=== PATIENT | female | born 1945 | race Two or more races ===

== ENCOUNTER 2020-06-19 08:31 | Outpatient (CLI) | payer OTHER | END 2020-06-19 08:37 | disposition home or self-care (01) | LOC: NUCLEAR 08:31 | PROVIDERS: ATTEND Internal Medicine Hematology & Oncology | DX: C54.1 Malignant neoplasm of endometrium (principal) | CPT/HCPCS: 78816; A9552 ==

== ENCOUNTER 2020-12-26 07:53 | Outpatient (CLI) | payer OTHER | END 2020-12-26 07:54 | disposition home or self-care (01) | LOC: NUCLEAR 07:53 | PROVIDERS: ATTEND Internal Medicine Hematology & Oncology | DX: C54.1 Malignant neoplasm of endometrium (principal); Z92.21 Personal history of antineoplastic chemotherapy | CPT/HCPCS: 78815; A9552 ==

== ENCOUNTER 2024-10-01 13:27 | Inpatient (IN) | payer OTHER ==
[~2024-10-01] VITALS: Ht 152.4 cm; Wt 42.6 kg
[2024-10-01] MEDS ORDERED: TOPROL XL50 M1 PO (14:20)
[2024-10-01] MEDS ORDERED: JANUVIA100 MG PO (14:20)
[2024-10-01] MEDS ORDERED: TAMS0.4C PO (14:21)
[2024-10-01] MEDS ORDERED: COZAAR100 MG PO (14:21)
[2024-10-01] MEDS ORDERED: CRESTOR40 MG (14:21)
--- NOTE | 2024-10-01 14:22 | NUR ---
SE RECIBE PTE ALERTA Y ORIENTADA X3 CUAL REFIERE VENIR POR REFERIDO DE DR.MORALES DURAN POR DOLOR PELVICO LADO DERECHO. SE CHASIDY S/V Y SE UBICA. PTE HX OF CA PELVICO.
[2024-10-01] MEDS ORDERED: FAMOTIDINE/PF 20 MG/2 ML VIAL IV STA (16:09)
[2024-10-01] MEDS ORDERED: MORPHINE SULFATE 4 MG/ML CARTRIDGE IV STA (16:09)
[2024-10-01 16:52] LABS: BASO % 0.2 % (0.1-1.2); EOS # 0.02 (0.04-0.54); EOS % 0.1 % (0.7-7.0); LYMPH # 0.72 (1.18-3.74); LYMPH % 4.8 % (19.3-53.1); MEAN PLATELET VOLUME 10.70 fl (9.4-12.4); MONO # 0.97 (0.24-0.82); MONO % 6.5 % (4.7-12.5); NEUT # 12.94 (1.56-6.13); NEUT % 86.3 % (34.0-71.1); RED CELL DISTRIBUTION WIDTH 18.1 % (11.6-14.4)
[2024-10-01] MEDS ORDERED: SODIUM CL 0.9% 25 ML IV.SOLN. IV STA (16:53)
--- NOTE | 2024-10-01 17:18 | NUR ---
SE ORIENTA A PACIENTE SOBRE TX MEDICO Y ARCELIA REFIERE ENTENDER Y ACEPTAR EL MISMO. SE PROCEDE A KARI MUESTRAS DE LAB. BAJO MEDIDAS ASEPTICAS. SE PROCEDE A CANALIZAR PACIENTE BAJO MEDIDAS ASEPTICAS. SE PROCEDE A ADMINISTARR MEDICAMENTO KITA ORDEN MEDICA BAJO MEDIDAS ASEPTICAS.
[2024-10-01 17:21] LABS: ALT/SGPT 42.0 U/L (12-78); AST/SGOT 43.0 U/L (15-37); BILIRUBIN TOTAL 0.71 mg/dL (0.3-1.2); BUN CREA RATIO 18.0 (7.0-25.0); CREATININE SERUM 1.1 mg/dL (0.55-1.02); GFR 47.67; GLOBULINA 4.9 G/DL (2.4-3.5); GLUCOSE FASTING 162.0 mg/dL (65-100); OSMOLALITY SERUM 282.0 MOSM/KG (275-295)
[2024-10-01 18:22] LABS: URINE APPEARANCE Clear; URINE BILIRRUBIN Negative (NEGATIVE); URINE BLOOD Moderate; URINE COLOR Dark Yellow; URINE GLUCOSE Negative (NEGATIVE); URINE KETONE Trace (NEGATIVE); URINE LEUKOCYTE Moderate; URINE NITRATE Positive; URINE UROBILINOGEN 0.2 E.U./dl
[2024-10-01 18:26] LABS: URINE BACTERIA 6831.6 uL (0.0-1933); URINE EPITHELIAL CELLS 1.5 uL (0.0-38.8); URINE RBC 18.9 uL (0.0-20.8); URINE WBC 621.2 uL (0.0-23.2)
--- NOTE | 2024-10-01 18:30 | NUR ---
SE CHASIDY SIGNOS VITALES PREVIO A ADMINISTRACION DE MORFINA BP 120/52 Y SE ORIENTA SOBRE MEDICACION Y SEGUIMIENTO DE CONDICION. CLIENTE ALERTA Y ORIENTADO AL MOMENTO DE LA INTERVENCION.
[2024-10-01 18:31] LABS: URINE CAST 0.87 uL (0.0-1.40); URINE PROTEIN 100 (NEGATIVE)
[2024-10-01] MEDS ORDERED: DEXTROSE 50 % IN WATER 0.5 G/ML VIAL IV PRN (20:00)
[2024-10-01] MEDS ORDERED: INSULIN LISPRO 1,000 UNIT/10 ML UNITS SUBCUTANEO PRN (20:00)
[2024-10-01] MEDS ORDERED: TAMSULOSIN HCL 0.4 MG CAP PO SCH (20:04)
[2024-10-01] MEDS ORDERED: LOSARTAN POTASSIUM 100 MG TABLET PO SCH (20:04)
[2024-10-01] MEDS ORDERED: METOPROLOL TARTRATE 50 MG TABLET PO SCH (20:04)
[2024-10-01] MEDS ORDERED: ENOXAPARIN SODIUM 40 MG/0.4 ML SYRINGE SUBCUTANEO SCH (20:05)
[2024-10-01] MEDS ORDERED: ONDANSETRON HCL 4 MG in 0.9 % SODIUM CHLORIDE 50 ML IV PRN (20:15)
[2024-10-01] MEDS ORDERED: 0.9 % SODIUM CHLORIDE 1,000 ML IV SCH (20:15)
[2024-10-01] MEDS ORDERED: ACETAMINOPHEN 325 MG TABLET PO PRN (20:15)
[2024-10-01] MEDS ORDERED: MORPHINE SULFATE 4 MG/ML CARTRIDGE IV PRN (20:15)
[2024-10-01] MEDS ORDERED: PIPERACILLIN/TAZOBACTAM SODIUM 4.5 GM VIAL IV SCH (21:00)
[2024-10-02 01:43] LABS: INR 1.21
[2024-10-02 05:55] VITALS: BP 107/55; O2SAT 96
[2024-10-02 07:05] LABS: BASO % 0.1 % (0.1-1.2); EOS # 0.01 (0.04-0.54); EOS % 0.1 % (0.7-7.0); LYMPH # 0.77 (1.18-3.74); LYMPH % 5.0 % (19.3-53.1); MEAN PLATELET VOLUME 10.80 fl (9.4-12.4); MONO # 0.91 (0.24-0.82); MONO % 5.9 % (4.7-12.5); NEUT # 13.33 (1.56-6.13); NEUT % 86.8 % (34.0-71.1); RED CELL DISTRIBUTION WIDTH 18.2 % (11.6-14.4)
[2024-10-02 09:50] VITALS: BP 113/61; O2SAT 95
[2024-10-02] MEDS ORDERED: OxyCODONE HCL 5 MG TABLET (ROXICODONE) PO PRN (14:15)
[2024-10-02 16:23] VITALS: BP 166/81
[2024-10-02] MEDS ORDERED: PHENAZOPYRIDINE HCL 100 MG TABLET PO NR (20:00)
[2024-10-02] MEDS ORDERED: TRAMADOL HCL 50 MG TABLET PO SCH (21:00)
[2024-10-02] MEDS ORDERED: FAMOTIDINE/PF 20 MG in 0.9 % SODIUM CHLORIDE 8 ML IV PUSH SCH (21:00)
[2024-10-03 02:17] VITALS: BP 127/67; O2SAT 97
[2024-10-03 06:27] LABS: BASO % 0.2 % (0.1-1.2); EOS # 0.07 (0.04-0.54); EOS % 0.5 % (0.7-7.0); LYMPH # 0.81 (1.18-3.74); LYMPH % 5.2 % (19.3-53.1); MEAN PLATELET VOLUME 11.10 fl (9.4-12.4); MONO # 0.87 (0.24-0.82); MONO % 5.6 % (4.7-12.5); NEUT # 13.32 (1.56-6.13); NEUT % 86.4 % (34.0-71.1); RED CELL DISTRIBUTION WIDTH 17.4 % (11.6-14.4)
[2024-10-03 06:53] LABS: BUN CREA RATIO 19.0 (7.0-25.0); CREATININE SERUM 0.78 mg/dL (0.55-1.02); GFR 70.88; GLUCOSE FASTING 147.0 mg/dL (65-100); OSMOLALITY SERUM 281.0 MOSM/KG (275-295)
[2024-10-03] MEDS ORDERED: PHENAZOPYRIDINE HCL 100 MG TABLET PO SCH (09:00)
[2024-10-03 09:04] VITALS: BP 135/67; O2SAT 94
[2024-10-03 17:45] VITALS: BP 143/70; O2SAT 96
[2024-10-04 01:00] VITALS: BP 110/68; O2SAT 91
[2024-10-04 08:47] VITALS: BP 160/76; O2SAT 94
[2024-10-04] MEDS ORDERED: MINERAL OIL 30 ML BLIST.PACK PO NR (14:00)
[2024-10-04] MEDS ORDERED: MAGNESIUM HYDROXIDE 30 ML BLIST.PACK PO NR (14:00)
[2024-10-04] MEDS ORDERED: LACTULOSE 20 G/30 ML BLIST.PACK PO NR (14:00)
[2024-10-04] MEDS ORDERED: CEFAZOLIN SODIUM 1,000 MG VIAL IV SCH (17:00)
[2024-10-04 17:50] VITALS: BP 156/77; O2SAT 100
[2024-10-05 02:03] VITALS: BP 161/70; O2SAT 90
[2024-10-05 09:02] LABS: BASO % 0.3 % (0.1-1.2); EOS # 0.01 (0.04-0.54); EOS % 0.1 % (0.7-7.0); LYMPH # 1.05 (1.18-3.74); LYMPH % 5.9 % (19.3-53.1); MEAN PLATELET VOLUME 10.60 fl (9.4-12.4); MONO # 0.73 (0.24-0.82); MONO % 4.1 % (4.7-12.5); NEUT # 14.70 (1.56-6.13); NEUT % 83.3 % (34.0-71.1); RED CELL DISTRIBUTION WIDTH 17.7 % (11.6-14.4)
[2024-10-05 09:26] VITALS: BP 168/74; O2SAT 92
[2024-10-05 09:27] LABS: BUN CREA RATIO 12.0 (7.0-25.0); CREATININE SERUM 0.58 mg/dL (0.55-1.02); GFR 99.77; GLUCOSE FASTING 137.0 mg/dL (65-100); OSMOLALITY SERUM 270.0 MOSM/KG (275-295)
[2024-10-05] MEDS ORDERED: KETOROLAC TROMETHAMINE 30 MG VIAL IM ONE (10:30)
[2024-10-05] MEDS ORDERED: KETOROLAC TROMETHAMINE 30 MG VIAL IV PRN (15:15)
[2024-10-05] MEDS ORDERED: ONDANSETRON HCL 2 MG/ML VIAL ONE (17:48)
[2024-10-05 18:06] VITALS: BP 159/92; O2SAT 96
[2024-10-06 00:50] VITALS: BP 164/80; O2SAT 94
[2024-10-06 08:00] VITALS: BP 140/82
[2024-10-06] MEDS ORDERED: LACTULOSE 20 G/30 ML BLIST.PACK PO SCH (17:00)
[2024-10-06] MEDS ORDERED: CEFAZOLIN SODIUM 1,000 MG VIAL IV SCH (17:00)
[2024-10-06] MEDS ORDERED: DOCUSATE SODIUM 100MG CAP PO SCH (17:00)
[2024-10-06 18:04] VITALS: BP 165/95; O2SAT 96
[2024-10-06] MEDS ORDERED: NIFEDIPINE 30 MG TAB.SA.OSM PO STA (18:26)
[2024-10-06] MEDS ORDERED: ENALAPRILAT DIHYDRATE 1.25 MG/ML VIAL IV PRN (18:30)
[2024-10-06 22:46] VITALS: BP 143/73; O2SAT 95
[2024-10-07] MEDS ORDERED: ONDANSETRON HCL 4 MG in 0.9 % SODIUM CHLORIDE 50 ML IV PRN (00:15)
[2024-10-07 00:34] VITALS: BP 135/79; O2SAT 90
[2024-10-07 08:06] VITALS: BP 130/71; O2SAT 93
[2024-10-07] MEDS ORDERED: NIFEDIPINE 30 MG TAB.SA.OSM PO SCH (09:00)
[2024-10-07] MEDS ORDERED: NA PHOS,M-B/NA PHOS,DI-BA 1 BOTTLE ENEMA RECTAL NR (17:00)
[2024-10-07 18:16] VITALS: BP 120/63; O2SAT 95
[2024-10-08 00:41] VITALS: BP 119/58; O2SAT 90
[2024-10-08] MEDS ORDERED: METOCLOPRAMIDE HCL 5 MG/ML VIAL IV SCH (01:00)
[2024-10-08 05:13] VITALS: BP 139/70
[2024-10-08 07:18] LABS: BASO % 0.3 % (0.1-1.2); EOS # 0.01 (0.04-0.54); EOS % 0.0 % (0.7-7.0); LYMPH # 0.74 (1.18-3.74); LYMPH % 3.1 % (19.3-53.1); MEAN PLATELET VOLUME 10.20 fl (9.4-12.4); MONO # 0.72 (0.24-0.82); MONO % 3.0 % (4.7-12.5); NEUT # 20.93 (1.56-6.13); NEUT % 88.7 % (34.0-71.1); RED CELL DISTRIBUTION WIDTH 17.7 % (11.6-14.4)
[2024-10-08 07:19] LABS: BUN CREA RATIO 23.0 (7.0-25.0); CREATININE SERUM 0.99 mg/dL (0.55-1.02); GFR 53.83; GLUCOSE FASTING 170.0 mg/dL (65-100); OSMOLALITY SERUM 285.0 MOSM/KG (275-295)
[2024-10-08] MEDS ORDERED: PROMETHAZINE HCL 25 MG/ML AMPUL IV PRN (10:15)
[2024-10-08 11:07] VITALS: BP 138/87; BP 141/70; O2SAT 94; O2SAT 96
[2024-10-08 15:53] VITALS: O2SAT 0
[2024-10-08 16:42] VITALS: BP 152/67; O2SAT 95
[2024-10-08] MEDS ORDERED: CEFEPIME HCL 2,000 MG in 0.9 % SODIUM CHLORIDE 100 ML IV SCH (18:16)
[2024-10-08 18:29] LABS: URINE APPEARANCE Cloudy; URINE BILIRRUBIN Small (NEGATIVE); URINE BLOOD Large; URINE COLOR Orange; URINE GLUCOSE Negative (NEGATIVE); URINE KETONE Negative (NEGATIVE); URINE LEUKOCYTE Small; URINE NITRATE Positive; URINE UROBILINOGEN 1.0 E.U./dl
[2024-10-08 18:32] LABS: URINE BACTERIA 165.5 uL (0.0-1933); URINE CAST 3.51 uL (0.0-1.40); URINE EPITHELIAL CELLS 89.3 uL (0.0-38.8); URINE RBC 1166.8 uL (0.0-20.8); URINE WBC 191.3 uL (0.0-23.2)
[2024-10-08 18:44] LABS: URINE PROTEIN 300 (NEGATIVE)
[2024-10-09 00:25] VITALS: BP 164/75; O2SAT 92
[2024-10-09 08:15] VITALS: BP 126/75
[2024-10-09 16:37] VITALS: BP 141/82
[2024-10-10 00:55] VITALS: BP 127/72; O2SAT 2
[2024-10-10 07:58] LABS: BASO % 0.8 % (0.1-1.2); EOS # 0.01 (0.04-0.54); EOS % 0.1 % (0.7-7.0); LYMPH # 0.52 (1.18-3.74); LYMPH % 2.9 % (19.3-53.1); MEAN PLATELET VOLUME 11.20 fl (9.4-12.4); MONO # 0.45 (0.24-0.82); MONO % 2.5 % (4.7-12.5); NEUT # 16.61 (1.56-6.13); NEUT % 92.7 % (34.0-71.1); RED CELL DISTRIBUTION WIDTH 18.5 % (11.6-14.4)
[2024-10-10 08:10] VITALS: BP 90/72; O2SAT 90
[2024-10-10 08:47] LABS: AST/SGOT 19 U/L (15-37); BILIRUBIN TOTAL 0.58 mg/dL (0.3-1.2); BUN CREA RATIO 28 (7.0-25.0); CREATININE SERUM 1.78 mg/dL (0.55-1.02); GFR 27.35; GLOBULINA 4.5 G/DL (2.4-3.5); GLUCOSE FASTING 173 mg/dL (65-100); OSMOLALITY SERUM 297 MOSM/KG (275-295)
[2024-10-10 08:56] LABS: ALT/SGPT < 6 U/L (12-78); CHOL HDL RATIO 2.3 (0-5.0); HDL 47.0 mg/dl (40-60); LDL 33.0 mg/dl (0-130); VLDL 30.0 (0-39)
[2024-10-10 10:43] LABS: ABG PH 7.412 (7.35-7.45); BICARBONATE 17.8 mmol/l (23-25)
[2024-10-10 10:46] VITALS: BP 153/78; O2SAT 85
[2024-10-10 11:10] LABS: ABG PO2 58.4 mmHg (80-100); o2 36 %
[2024-10-10 13:52] VITALS: O2SAT 93
[2024-10-10 16:45] VITALS: O2SAT 90
[2024-10-10] MEDS ORDERED: AA 4.25%/CAL/LYTES/DEXT 5% 1,000 ML PERIFERAL SCH (17:00)
[2024-10-10 17:44] VITALS: BP 133/68
[2024-10-10] MEDS ORDERED: MORPHINE SULFATE 2 MG/ML CARTRIDGE IV PRN (21:00)
[2024-10-10] MEDS ORDERED: FAT EMULSIONS 250 ML IV SCH (21:00)
[2024-10-11] VITALS (9 sets, daily range): BP systolic 135–164; BP diastolic 55–76; O2SAT 94–98
[2024-10-11] MEDS ORDERED: CEFEPIME HCL 2,000 MG in 0.9 % SODIUM CHLORIDE 100 ML IV SCH (09:00)
[2024-10-11 09:15] LABS: ABG PH 7.467 (7.35-7.45); ABG PO2 94.4 mmHg (80-100); BICARBONATE 22.4 mmol/l (23-25)
[2024-10-11 10:05] LABS: o2 100 %
[2024-10-11] MEDS ORDERED: HALOPERIDOL LACTATE 5 MG/ML AMPUL IM PRN (10:15)
[2024-10-11 12:23] LABS: BUN CREA RATIO 47.0 (7.0-25.0); CREATININE SERUM 1.16 mg/dL (0.55-1.02); GFR 44.84; OSMOLALITY SERUM 308.0 MOSM/KG (275-295)
[2024-10-11 12:25] LABS: GLUCOSE FASTING 270.0 mg/dL (65-100)
[2024-10-11 20:53] LABS: MONONUCLEAR 61.3 %; POLYMORPHONUCLEAR 38.7 %
[2024-10-11 21:25] LABS: GLU PLEURAL FLUID 215.0 mg/dl; LDH PLEURAL FLUID 164.0 U/L; TP PLEURAL FLUID 3.4 g/dl
[2024-10-12] VITALS (9 sets, daily range): BP systolic 116–130; BP diastolic 60–64; O2SAT 95–98
[2024-10-12 12:11] LABS: BASO % 0.7 % (0.1-1.2); EOS # 0.18 (0.04-0.54); EOS % 1.2 % (0.7-7.0); LYMPH # 0.59 (1.18-3.74); LYMPH % 4.0 % (19.3-53.1); MEAN PLATELET VOLUME 10.50 fl (9.4-12.4); MONO # 0.67 (0.24-0.82); MONO % 4.5 % (4.7-12.5); NEUT # 12.56 (1.56-6.13); NEUT % 84.2 % (34.0-71.1); RED CELL DISTRIBUTION WIDTH 17.8 % (11.6-14.4)
[2024-10-12 12:41] LABS: BUN CREA RATIO 44.0 (7.0-25.0); CREATININE SERUM 0.86 mg/dL (0.55-1.02); GFR 63.33; OSMOLALITY SERUM 297.0 MOSM/KG (275-295)
[2024-10-12 12:42] LABS: GLUCOSE FASTING 221.0 mg/dL (65-100)
[2024-10-12] MEDS ORDERED: CEFEPIME HCL 2,000 MG in 0.9 % SODIUM CHLORIDE 100 ML IV SCH (21:00)
[2024-10-13] VITALS (9 sets, daily range): BP systolic 110–120; BP diastolic 56–69; O2SAT 93–100
[2024-10-13 14:27] LABS: ABG PH 7.500 (7.35-7.45); ABG PO2 207.3 mmHg (80-100); BICARBONATE 24.7 mmol/l (23-25)
[2024-10-13 14:34] LABS: o2 100 %
[2024-10-14] VITALS (10 sets, daily range): BP systolic 102–153; BP diastolic 62–69; O2SAT 87–99
[2024-10-14] MEDS ORDERED: MORPHINE SULFATE 4 MG/ML CARTRIDGE IV PRN (22:45)
[2024-10-15] VITALS (10 sets, daily range): BP systolic 132–159; BP diastolic 62–85; O2SAT 96–100
[2024-10-15 07:48] LABS: BASO % 0.7 % (0.1-1.2); EOS # 0.16 (0.04-0.54); EOS % 0.8 % (0.7-7.0); LYMPH # 0.68 (1.18-3.74); LYMPH % 3.5 % (19.3-53.1); MEAN PLATELET VOLUME 10.80 fl (9.4-12.4); MONO # 1.02 (0.24-0.82); MONO % 5.2 % (4.7-12.5); NEUT # 14.67 (1.56-6.13); NEUT % 75.5 % (34.0-71.1); RED CELL DISTRIBUTION WIDTH 16.8 % (11.6-14.4)
[2024-10-15 08:22] LABS: BUN CREA RATIO 52.0 (7.0-25.0); CREATININE SERUM 0.62 mg/dL (0.55-1.02); GFR 92.38; GLUCOSE FASTING 184.0 mg/dL (65-100); OSMOLALITY SERUM 287.0 MOSM/KG (275-295)
[2024-10-15 08:37] LABS: BAND MAN 4.0 %; EOSINOPHIL MAN 3.0 %; LYMPHOCYTE MAN 3.0 %; METAMYELOCYTE 3.0 %; MONOCYTE MAN 2.0 %; MYELOCYTE 1.0 %; NEUTROPHILS MAN 84.0 %
[2024-10-15] MEDS ORDERED: MORPHINE SULFATE 2 MG/ML CARTRIDGE IV PRN (09:45)
[2024-10-15] MEDS ORDERED: HALOPERIDOL LACTATE 5 MG/ML AMPUL IM PRN (11:30)
[2024-10-16] VITALS (9 sets, daily range): BP systolic 136–150; BP diastolic 64–80; O2SAT 90–96
[2024-10-16 06:13] LABS: BASO % 0.5 % (0.1-1.2); EOS # 0.11 (0.04-0.54); EOS % 0.5 % (0.7-7.0); LYMPH # 0.64 (1.18-3.74); LYMPH % 2.8 % (19.3-53.1); MEAN PLATELET VOLUME 11.20 fl (9.4-12.4); MONO # 0.85 (0.24-0.82); MONO % 3.8 % (4.7-12.5); NEUT # 19.11 (1.56-6.13); NEUT % 84.4 % (34.0-71.1); RED CELL DISTRIBUTION WIDTH 16.4 % (11.6-14.4)
[2024-10-16 06:40] LABS: INR 1.17
[2024-10-16 07:03] LABS: ALT/SGPT 13.0 U/L (12-78); AST/SGOT 24.0 U/L (15-37); BILIRUBIN TOTAL 0.55 mg/dL (0.3-1.2); BILIRUBIN,CONJUGATED 0.23 mg/dL (0.0-0.2); BUN CREA RATIO 41.0 (7.0-25.0); CHOL HDL RATIO 4.3 (0-5.0); CREATININE SERUM 0.86 mg/dL (0.55-1.02); GFR 63.33; GLOBULINA 4.0 G/DL (2.4-3.5); GLUCOSE FASTING 176.0 mg/dL (65-100); HDL 24.0 mg/dl (40-60); LDL 44.0 mg/dl (0-130); OSMOLALITY SERUM 282.0 MOSM/KG (275-295); VLDL 33.0 (0-39)
[2024-10-16 08:31] LABS: BAND MAN 1.0 %; LYMPHOCYTE MAN 6.0 %; MONOCYTE MAN 1.0 %; NEUTROPHILS MAN 92.0 %
[2024-10-16 10:58] LABS: UREA CLEARANCE 22.7 ML/MIN
[2024-10-16 11:59] LABS: BASO % 0.2 % (0.1-1.2); EOS # 0.08 (0.04-0.54); EOS % 0.4 % (0.7-7.0); LYMPH # 0.42 (1.18-3.74); LYMPH % 2.4 % (19.3-53.1); MEAN PLATELET VOLUME 11.00 fl (9.4-12.4); MONO # 0.60 (0.24-0.82); MONO % 3.4 % (4.7-12.5); NEUT # 15.30 (1.56-6.13); NEUT % 86.1 % (34.0-71.1); RED CELL DISTRIBUTION WIDTH 16.2 % (11.6-14.4)
[2024-10-16 12:03] LABS: ABG PH 7.507 (7.35-7.45); ABG PO2 65.9 mmHg (80-100); BICARBONATE 25.7 mmol/l (23-25)
[2024-10-16 12:04] LABS: o2 50 %
[2024-10-16] MEDS ORDERED: SOD FERRIC GLUC COMPLX/SUCROSE 125 MG in 0.9 % SODIUM CHLORIDE 100 ML IV SCH (21:00)
[2024-10-17] VITALS (8 sets, daily range): BP systolic 116–164; BP diastolic 60–81; O2SAT 90–98
[2024-10-17 10:57] LABS: BASO % 0.4 % (0.1-1.2); EOS # 0.06 (0.04-0.54); EOS % 0.3 % (0.7-7.0); LYMPH # 0.35 (1.18-3.74); LYMPH % 1.7 % (19.3-53.1); MEAN PLATELET VOLUME 11.50 fl (9.4-12.4); MONO # 0.47 (0.24-0.82); MONO % 2.3 % (4.7-12.5); NEUT # 17.68 (1.56-6.13); NEUT % 87.9 % (34.0-71.1); RED CELL DISTRIBUTION WIDTH 16.3 % (11.6-14.4)
[2024-10-17 12:31] LABS: BAND MAN 14.0 %; LYMPHOCYTE MAN 2.0 %; METAMYELOCYTE 3.0 %; MONOCYTE MAN 3.0 %; NEUTROPHILS MAN 78.0 %
[2024-10-18 00:41] VITALS: BP 130/66; O2SAT 95
[2024-10-18 05:47] VITALS: O2SAT 97
[2024-10-18 07:55] VITALS: BP 147/70
[2024-10-18] MEDS ORDERED: FAMOTIDINE/PF 20 MG/2 ML VIAL IV SCH (09:00)
[2024-10-18 16:40] VITALS: BP 151/79; O2SAT 98
[2024-10-18 17:31] VITALS: O2SAT 97
[2024-10-18 21:05] VITALS: O2SAT 98
[2024-10-19 01:58] VITALS: BP 160/81; O2SAT 96
[2024-10-19 02:23] VITALS: O2SAT 98
[2024-10-19 05:27] VITALS: O2SAT 97
[2024-10-19 08:31] VITALS: BP 135/60
[2024-10-19 10:15] VITALS: O2SAT 99
== END 2024-10-19 13:02 | disposition home or self-care (01) | DRG 754 ==
LOC: ER 13:33 → MEDJ 21:14
PROVIDERS: General Practice; Internal Medicine; Internal Medicine Infectious Disease; Radiology Vascular & Interventional Radiology; Student in an Organized Health Care Education/Training Program; ADMIT Student in an Organized Health Care Education/Training Program; ATTEND Student in an Organized Health Care Education/Training Program
PROC: BW21ZZZ Computerized Tomography (CT Scan) of Abdomen and Pelvis (ICD-10-PCS; 2024-10-01)
PROC: 30233N1 Transfusion of Nonautologous Red Blood Cells into Peripheral Vein, Percutaneous Approach (ICD-10-PCS; principal; 2024-10-02)
PROC: 3E0336Z Introduction of Nutritional Substance into Peripheral Vein, Percutaneous Approach (ICD-10-PCS; 2024-10-10)
PROC: 0W993ZZ Drainage of Right Pleural Cavity, Percutaneous Approach (ICD-10-PCS; 2024-10-11)
PROC: 0W9B3ZZ Drainage of Left Pleural Cavity, Percutaneous Approach (ICD-10-PCS; 2024-10-12)
PROC: B246ZZZ Ultrasonography of Right and Left Heart (ICD-10-PCS; 2024-10-12)
PROC: 5A0945A Assistance with Respiratory Ventilation, 24-96 Consecutive Hours, High Flow/Velocity Cannula (ICD-10-PCS; 2024-10-15)
PROC: 02HV33Z Insertion of Infusion Device into Superior Vena Cava, Percutaneous Approach (ICD-10-PCS; 2024-10-18)
PROC: B548ZZA Ultrasonography of Superior Vena Cava, Guidance (ICD-10-PCS; 2024-10-18)
DX: C55 Malignant neoplasm of uterus, part unspecified (principal); I50.31 Acute diastolic (congestive) heart failure; J96.00 Acute respiratory failure, unspecified whether with hypoxia or hypercapnia; C78.89 Secondary malignant neoplasm of other digestive organs; C79.89 Secondary malignant neoplasm of other specified sites; T83.593A Infection and inflammatory reaction due to other urinary stents, initial encounter; N39.0 Urinary tract infection, site not specified; N13.30 Unspecified hydronephrosis; E46 Unspecified protein-calorie malnutrition; K56.609 Unspecified intestinal obstruction, unspecified as to partial versus complete obstruction; N17.9 Acute kidney failure, unspecified; J90 Pleural effusion, not elsewhere classified; J91.8 Pleural effusion in other conditions classified elsewhere; I13.0 Hypertensive heart and chronic kidney disease with heart failure and stage 1 through stage 4 chronic kidney disease, or unspecified chronic kidney disease; Z68.1 Body mass index [BMI] 19.9 or less, adult; D64.89 Other specified anemias; R19.09 Other intra-abdominal and pelvic swelling, mass and lump; K52.9 Noninfective gastroenteritis and colitis, unspecified; K59.09 Other constipation; G89.3 Neoplasm related pain (acute) (chronic); D72.828 Other elevated white blood cell count; D75.838 Other thrombocytosis; E11.65 Type 2 diabetes mellitus with hyperglycemia; N18.9 Chronic kidney disease, unspecified; D63.0 Anemia in neoplastic disease; Z92.21 Personal history of antineoplastic chemotherapy; Z92.3 Personal history of irradiation; Z95.1 Presence of aortocoronary bypass graft; Z90.710 Acquired absence of both cervix and uterus; Z90.722 Acquired absence of ovaries, bilateral; Z96.0 Presence of urogenital implants; Z66 Do not resuscitate; B95.61 Methicillin susceptible Staphylococcus aureus infection as the cause of diseases classified elsewhere; Z79.84 Long term (current) use of oral hypoglycemic drugs; Y65.8 Other specified misadventures during surgical and medical care